=== PATIENT | male | born 1955 | race Caucasian/White ===

== ENCOUNTER 2017-06-12 16:48 | Inpatient (IN) | payer OTHER, MEDICARE ==
[~2017-06-12] VITALS: Ht 175.3 cm; Wt 100.2 kg
[~2017-06-12 16:48] MED LIST: ACETAMINOPHEN500 M4 PO; ANIMAL CHEWS1 EACH PO; AUGMENTIN 875-1 EACH PO; IBUPROFEN IB200 M1; KEFLEX500 M1 PO; KEFLEX500 MG PO; MYCOSTATIN SUS.60 ML PO; NYSTATIN100000 UNI PO; PROSTATE HEALT1 EACH PO; SENNA S TABLET1 EACH PO
[2017-06-12 17:42] LABS: ABSOLUTE BASOPHIL COUNT 0 /CUMM (0.0-0.2); ABSOLUTE EOSINOPHIL COUNT 0 /CUMM (0.0-0.7); ABSOLUTE GRANULOCYTE CT 21.6 /CUMM (1.4-6.5); ABSOLUTE LYMPH COUNT 0.4 /CUMM (1.2-3.4); ABSOLUTE MONOCYTE COUNT 1.3 /CUMM (0.10-0.60); BASOPHIL % 0.1 % (0.0-2.0); EOSINOPHIL % 0.1 % (0-5); GRANULOCYTE % 92.4 % (42.2-75.2); HEMATOCRIT 43.5 % (42-52); MEAN CORPUSCULAR HGB 31.7 PG (27.0-31.0); MEAN CORPUSCULAR HGB CONC 34.6 G/DL (33.0-37.0); MEAN CORPUSCULAR VOLUME 91.8 FL (80.0-94.0); MEAN PLATELET VOLUME 7.9 FL (7.4-10.4); PLATELET COUNT 294 /CUMM (130-400); RBC DISTRIBUTION WIDTH 13.8 % (11.5-14.5); RED BLOOD CELL CT 4.74 /CUMM (4.70-6.10)
[2017-06-12 17:53] LABS: WHITE BLOOD CELL COUNT 23.4 /CUMM (4.8-10.8)
--- NOTE | 2017-06-12 18:52 | ED UPPER/LOWER EXTREMITY COMPL ---
History of Present Illness General Chief Complaint: Lower Extremity Problems Stated Complaint: "I HAVE CELLULITIS IN MY RIGHT LEG" Source: patient, family Exam Limitations: no limitations Allergies Coded Allergies: NSAIDS (Non-Steroidal Anti-Inflamma (Mild, "GI UPSET" 09/10/15) aspirin (Mild, "GI UPSET" 09/10/15) codeine (Mild, "GI UPSET" 09/10/15) morphine (Mild, "CRYING FIT FOR 24 HOURS" 09/10/15) Reconcile Medications Acetaminophen 500 MG TABLET 1 TAB PO PRN ARTHRITIS (Reported) Cephalexin (Keflex) 500 MG CAPSULE 1 TAB PO Q6 cellulitis Multivitamin (Animal Chews) 1 EACH TAB.CHEW 2 TAB PO DAILY HEART HEALTH ( Reported) Nystatin 100,000 UNIT/1 ML ORAL.SUSP 5 ML PO 4 TIMES/DAY oral thrush Saw/Vit E/Sod Anayeli/Lyc/Beta/Pyg (Prostate Health Caplet) 1 EACH TABLET 1 TAB PO DAILY PROSTATE (Reported) Sennosides/Docusate Sodium (Senna S Tablet) 1 EACH TABLET 2 TAB PO DAILY constipation Triage Note: PT STATES HE HAS CHRONIC CELLULITIS IN HIS RIGHT LOWER EXT. PT HAS FEVER IN TRIAGE STATES IT CAME ON ABOUT 10:30 THIS AM. Triage Nurses Notes Reviewed? yes Onset: Gradual Duration: day(s): Timing: recent history Severity: moderate Pain/Injury Location: Right: Leg, Foot. HPI: 62YO Male with hx of multiple episodes of cellulitis requiring hospital admission, cerebral palsy presents emergency department complaining of cellulitis to right lower extremity beginning today. Patient states that yesterday he was in his usual state of health. Today while at work experiencing chills and nausea with pain in her right lower leg. Patient detected redness right lower legs, his circled area with pen marker. Red area has been increasing up leg for the past several hours. Patient reports injury to second toenail of right foot earlier this week. Patient reports his nausea has resolved. He denies abdominal pain, diarrhea, chest pain, cough. (Savita BUSBY,Kristy Velázquez) Vital Signs & Intake/Output Vital Signs & Intake/Output Vital Signs Date Time Temp Pulse Resp B/P B/P Pulse O2 O2 Flow FiO2 Mean Ox Delivery Rate 06/13 0057 99.1 107 16 161/71 97 Room Air 06/12 2021 99.3 104 20 119/69 98 Room Air 06/12 1728 100.9 06/12 1715 100.9 132 20 139/84 95 Room Air ED Intake and Output 06/13 0000 06/12 1200 Intake Total 3000 Output Total Balance 3000 Intake, IV 3000 Intake, Oral 0 Patient 222 lb Weight Weight Reported by Patient Measurement Method (Palma MONTE,Baljinder Melo) ED Sepsis Exam Date of Focused Sepsis Exam: 06/12/17 Time of Focused Sepsis Exam: 1830 Sepsis Cardiac Exam: Tachycardia Sepsis Resp Exam: CTA Sepsis Cap Refill Exam: <2 Sec Sepsis Peripheral Pulse Exam: Normal Sepsis Peripheral Pulse Location: Radial Sepsis Skin Color Exam: Normal for Ethnicity, erythema to RLE Skin Temp/Moisture Exam: Warm/Dry (Kristy Medrano) Past History Travel History Traveled to [place] past 21 day No Medical History Any Pertinent Medical History? 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 No (Kristy Medrano) Review of Systems Review of Systems Constitutional: Reports: see HPI. EENTM: Reports: no symptoms. Respiratory: Reports: no symptoms. Cardiovascular: Reports: no symptoms. Gastrointestinal/Abdominal: Reports: see HPI. Genitourinary: Reports: no symptoms. Musculoskeletal: Reports: no symptoms. Skin: Reports: see HPI. Neurological/Psychological: Reports: no symptoms. Hematologic/Endocrine: Reports: no symptoms. Immunological: Reports: no symptoms. All Other Systems: Reviewed and Negative (Kristy Medrano) Physical Exam Physical Exam General Appearance: well developed/nourished, no apparent distress, alert, awake Head: atraumatic, normal appearance Eyes: Bilateral: normal appearance. Ears, Nose, Throat: hearing grossly normal Neck: normal inspection, supple, full range of motion Cardiovascular/Respiratory: normal breath sounds, normal peripheral pulses, tachycardia Peripheral Pulses: 2+ radial (R), 2+ radial (L) Gastrointestinal: nontender, bowel sounds present Back: normal inspection, normal range of motion Leg Left: normal range of motion, normal inspection Leg Right: swelling, erythema, warmth, tenderness to anterior lower leg Hip Left: normal range of motion, normal inspection Hip Right: normal range of motion, normal inspection Knee Left: normal range of motion, normal inspection Knee Right: normal range of motion, normal inspection Foot Left: normal inspection, normal range of motion Foot Right: nail avulsion to 2nd digit Neurologic/Tendon: normal sensation, normal motor functions, normal tendon functions Skin: see erythema as described above (Savita BUSBY,Kristy Velázquez) Progress Differential Diagnosis: cellulitis, contusion, DVT, septic arthritis (Kristy Medrano) Plan of Care: Orders Procedure Date/time Status Regular Diet 06/13 B Active Misc Message 06/12 2148 Active ED Holding Orders 06/12 2148 Active Admit to inpatient 06/12 2148 Active Vital Signs 06/12 2148 Active Code Status 06/12 2148 Active Patient Data 06/12 2120 Active Intake & Output 06/12 2022 Active LACTIC ACID 06/12 2020 Complete RAPID VIRAL INFLUENZA A 06/12 1901 Complete BLOOD CULTURE 06/12 1720 Active LACTIC ACID 06/12 1720 Complete COMPREHENSIVE METABOLIC PANEL 06/12 172 Complete CBC WITHOUT DIFFERENTIAL 06/12 172 Complete Laboratory Tests 06/12/17 2100: Lactic Acid 3.5 H 06/12/17 1725: Anion Gap 13, Estimated GFR > 60, BUN/Creatinine Ratio 25.0, Glucose 112 H, Lactic Acid 2.7 H, Calcium 9.7, Total Bilirubin 0.7, AST 53, ALT 72, Alkaline Phosphatase 77, Total Protein 7.5, Albumin 4.5, Globulin 3.0, Albumin/Globulin Ratio 1.5, CBC w Diff MAN DIFF ORDERED, RBC 4.74, MCV 91.8, MCH 31.7 H, MCHC 34.6, RDW 13.8, MPV 7.9, Gran % 92.4 H, Lymphocytes % 1.8 L, Monocytes % 5.6, Eosinophils % 0.1, Basophils % 0.1, Absolute Granulocytes 21.6 H, Absolute Lymphocytes 0.4 L, Absolute Monocytes 1.3 H, Absolute Eosinophils 0, Absolute Basophils 0, Platelet Estimate ADEQUATE, Anisocytosis 1+ Microbiology 06/12 1954 NASOPHARYN: Influenza Virus A & B Rapid Smear - COMP 06/12 1954 BLOOD: Blood Culture - RECD 06/12 1724 BLOOD: Blood Culture - RECD Patient has a rapidly spreading cellulitis with onset today. Patient's history is significant for several previous episodes of cellulitis. With patient's current infection, tachycardia, leukocytosis, patient's condition meets SIRS criteria. Patient's lactic acid is elevated. Patient was medicated with IV fluids and IV Unasyn per sepsis protocol. The patient was seen and evaluated by Dr. Waldrop. The patient was discussed with hospitalist Dr. Becker regarding general medicine admission for cellulitis. This patient requires IV antibiotics , IV fluids, repeat labs, follow up with blood cultures, premature discharge be medically unsafe. Discussed this patient with case management who agree. (Kristy Medrano) (Palma MONTE,Baljinder Melo) Departure Departure Disposition: STILL A PATIENT Condition: Stable Clinical Impression Primary Impression: Cellulitis Qualifiers: Site of cellulitis: extremity Site of cellulitis of extremity: lower extremity Laterality: right Qualified Code: L03.115 - Cellulitis of right lower limb Secondary Impressions: Sepsis Referrals: Caitlin MONTE,Jerry Martinez (PCP/Family) Departure Forms: Customer Survey General Discharge Information Admission Note Spoke With: Joe Becker MD Documentation of Exam: Documentation of any treatments & extenuating circumstances including Concerns Regarding Discharge (functional status, medication knowledge or non-compliance, living conditions, etc.) that warrant an admission rather than observation: [ Cellulitis meeting SIRS criteria with leukocytosis and tachycardia, elevated lactic acid, requiring IV antibiotics, IV fluids, repeat labs come follow-up with blood cultures, premature discharge would be medically unsafe.] (Kristy Medrano) Critical Care Note Critical Care Note Critical Care Time: 30-74 min (Kristy Medrano)
--- NOTE | 2017-06-12 22:31 | History & Physical ---
Candi MONTE,Yaneth 06/12/17 5160: General Information and HPI MD Statement: I have seen and personally examined NAN LÓPEZ and documented this H&P. The patient is a 62 year old M who presented with a patient stated chief complaint of [right lower extremity cellulitis]. Source of Information: patient, old records History of Present Illness: 62 years old male with a past medical history of cerebral palsy, left hip reconstruction and multiple hip surgeries. Complains of shaking chills which started around 11 AM which was followed within a few hours by development of localized erythema and swelling of his right lower extremity. It was associated with nausea. Of note the patient injured his right second toe (he has spastic gait due to cerebral palsy which leads his second toe to frequently bend under that foot, he had to remove his toe nail and he was alcohol and hydrogen peroxide to clean the wound. He denies any discharge or pain in that toe. Patient denies any recent trauma to his leg or recent travel. He was awoken to ambulate at baseline. Ex-smoker and occasional alcohol use Allergies/Medications Allergies: Coded Allergies: NSAIDS (Non-Steroidal Anti-Inflamma (Mild, "GI UPSET" 09/10/15) aspirin (Mild, "GI UPSET" 09/10/15) codeine (Mild, "GI UPSET" 09/10/15) morphine (Mild, "CRYING FIT FOR 24 HOURS" 09/10/15) Home Med list Acetaminophen 500 MG TABLET 1 TAB PO PRN ARTHRITIS (Reported) Past History Travel History Traveled to [place] past 21 day No Medical History Neurological: CEREBRAL PALSY EENT: NONE Cardiovascular: NONE Respiratory: NONE Gastrointestinal: NONE Hepatic: NONE Renal: NONE Musculoskeletal: L HIP RECONSTRUCTION SEVERAL LEG SURGERYS Psychiatric: NONE Endocrine: NONE Blood Disorders: NONE Cancer(s): NONE 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 spouse Services at Home: None Primary Language: Lithuanian ETOH Use: occasional use Illicit Drug Use: marijuana Functional Ability ADLs Independent: dressing, eating, toileting, bathing. Ambulation: cane, walker Review of Systems Review of Systems Constitutional: Reports: chills, diaphoresis, fever. Cardiovascular: Denies: no symptoms. Respiratory: Denies: no symptoms. GI: Reports: nausea. Genitourinary: Denies: no symptoms. Musculoskeletal: Reports: see HPI. Skin: Reports: see HPI, lesions. Exam & Diagnostic Data Last 24 Hrs of Vital Signs/I&O Vital Signs Date Time Temp Pulse Resp B/P B/P Pulse O2 O2 Flow FiO2 Mean Ox Delivery Rate 06/13 0057 99.1 107 16 161/71 97 Room Air 06/12 2021 99.3 104 20 119/69 98 Room Air 06/12 1728 100.9 06/12 1715 100.9 132 20 139/84 95 Room Air Intake & Output 06/13 0800 06/13 0000 06/12 1600 Intake Total 3000 Output Total Balance 3000 Intake, IV 3000 Intake, Oral 0 Patient 222 lb Weight Weight Reported by Patient Measurement Method Physical Exam General Appearance Alert, Oriented X3, Cooperative, No Acute Distress Skin No Breakdown HEENT Atraumatic, PERRLA, EOMI, Mucous Membr. moist/pink Neck Supple, No JVD Cardiovascular Normal S1, Normal S2, No Murmurs Lungs Clear to Auscultation Abdomen Normal Bowel Sounds, Soft, No Tenderness Extremities right LE eryhtema ans 2 + pitting edema, right 2 nd toe has a small non infected wound 0.5X0.5 cm at the nail bed Vascular Normal Pulses Assessment/Plan Assessment: 62 years old male with a past medical history of cerebral palsy, left hip reconstruction and multiple hip surgeries. Complains of shaking chills which started around 11 AM which was followed within a few hours by development of localized erythema and swelling of his right lower extremity. It was associated with nausea. Of note the patient injured his right second toe (he has spastic gait due to cerebral palsy which leads his second toe to frequently bend under that foot, most likely the source of his cellulitis is due to that toenail injury and the use of hydrogen peroxide. Patient has history of recurrent cellulitis, his chest admission was on August 2015 with sepsis secondary to right lower extremity cellulitis Vital signs on admission: Febrile with temperature 100.9, blood pressure 139/84, pulse 132, respiratory rate 20, pulse ox 95 on room air admission: wbc 23.4 with left shift, hemoglobin 15, benefit to 94, sodium 136, potassium 3.9, lactic acid 3.5, glucose 112, BUN 20, creatinine 0.8 #Sepsis secondary to Right lower extremity cellulitis: pt met 3 cr with fever and leucocytosis and tachycardia Admit to the general medicine floor Cefazolin 1 g IV every 8 Tylenol 650 mg every 6 when necessary for fever Follow-up on blood culture Doppler ultrasound to rule out DVT Leg elevation #Lactic acidosis: Most likely due to dehydration and infection Trended lactic acid IV normal saline at rate of 200 mL/h DVT prophylaxis with Lovenox Full code Regular diet # As Ranked By This Provider Problem List: 1. Cellulitis Qualifiers Site of cellulitis: extremity Site of cellulitis of extremity: lower extremity Laterality: right Qualified Code: L03.115 - Cellulitis of right lower limb Core Measures/Misc (01/14) Acute Coronary Syndrome ACS Diagnosis: No Congestive Heart Failure Congestive Heart Failure Diagnosis No Cerebrovascular Accident CVA/TIA Diagnosis: No VTE (View Protocol) VTE Risk Factors Age>40 No Mechanical VTE Prophylaxis d/t N/A MechProphylax Ordered No VTE Pharm Prophylaxis d/t NA PharmProphylax ordered Sepsis (View protocol) Sepsis Present: Yes Joe Becker 06/13/17 0133: Attending MD Review Statement Attending Statement Attending MD Statement: examined this patient, discuss w/resident/PA/OBIEE CONSULTANT, agreed w/resident/PA/OBIEE CONSULTANT, discussed with family, reviewed EMR data (avail), reviewed images, amended to note Attending Assessment/Plan: CC: Right leg redness PMH: Mild Cerebral palsy, multiple surgeries Patient is a very good historian, he was working from home at around 11 AM, he noticed chills and shaking and feverish it was associated with nausea but no vomiting. Patient has recurrent cellulitis of right lower extremity, so he was worried about that and kept a close eye on that leg and around afternoon he noticed redness, swelling, pain is right lower extremity so he came to ER. Because of his gait secondary to cerebral palsy, he had trauma to his second right toe, broken nail which he had to remove, followed by shallow ulcer which happened few days back with no signs of infection. Otherwise complete ROS unremarkable Vitals: Tmax 100.9, HR 132, RR 20, blood pressure 139/84, saturating 98% on room air On exam: A O 3, cooperative, no acute distress, neck supple, JVD normal, no lymphadenopathy, mucosa moist, no focal neurological deficit, no dependent edema , CVS: S1-S2, RRR. RS: Clear to auscultate bilaterally. Abdomen: Soft, NT, ND, bowel sounds present. Right lower extremity warm, tried, tender to touch, significantly swollen as compared to left, peripheral pulses intact, knee joint movement and ankle joint movement of her right leg intact. Assessment and plan 62-year-old male with past medical history significant for mild cerebral palsy with gait abnormality presented in ER for right lower extremity pain, swelling, redness appears to have cellulitis. Patient has marked the area of redness at home this afternoon, in ER it appears to be beyond the marking. No crepitus, joint movements intact, pulses normal. He spiked fever of 100.9 with tachycardia and has significant leukocytosis 23.4 with left shift. He has lactic acidosis as well. Given no purulence, fluctuation staph or MRSA less likely, we will cover her with cefazolin + Sepsis secondary to cellulitis + Right lower extremity cellulitis + History of mild cerebral palsy - Admit to general medicine - Continue gentle hydration - Trend lactate - Follow-up cultures - Continue IV cefazolin - Leg elevation - DVT Doppler - Adequate pain control - DVT prophylaxis Caryl MONTE,[facility] 06/13/17 0446: Resident Review Statement Resident Statement: examined this patient, discussed with security intern, agreed with security intern Other Findings: Mr López is 62-year-old male with past medical history significant for cerebral palsy status post multiple foot and knee surgeries, osteoarthritis, left hip reconstruction after trauma 1992, multiple bilateral lower extremity cellulitis who presented to ED with chief complain of right foot erythema and swelling. Patient was admitted in August 2015 for right foot cellulitis and treated with IV Cefazolin, negative blood culture. Patient was in his regular state of health until 11:30 this morning when he started to have chills and stomach upset, nausea, denied vomiting. Patient reported having similar symptoms every time when he gets cellulitis. Around 2:30 PM noticed redness on the anterior surface of right leg associated with swelling. Patient denied any trauma, scratch, animal bites however reported wound in the 2nd toe becuase of nail/toe deformaty couple of days ago. Patient denied fever, headaches, blurry vision, chest pain, palpitation, shortness of breath, abdominal pain, vomiting, dysuria or change in color of urine. On admission Vital significant to temperature 100.9, pulse 132, respiratory rate 20 saturating 95% room air, blood pressure 159/84 white blood cells 23.4 with left shift no bandemia, H&H 15.6/43.5, platelet 294, lactic acid 2.7, sodium 136, potassium 3.9, BUN/creatinine 20/0.8 Problem list Sepsis Right leg cellulitis mostly Streptococcus Toe deformity Plan Admit to general medical floor Vitals every shift Blood culture IV cefazolin IV fluid Trend lactic acid Repeat CBC and BMP in a.m. Wound care of right second toe, currently no signs of infection Outpatient referral to podiatry for evaluation Leg elevation Acetaminophen for pain and fever Doppler ultrasound to rule out DVT DVT prophylaxis Lovenox Diet regular Code full
--- NOTE | 2017-06-13 01:35 | Admission Certification ---
Admission Certification Certification Statement - As attending physician, I certify that at the time of - admission, based on clinical presentation, severity of - symptoms, need for further diagnostic testing and - therapeutic interventions, and risk of adverse outcomes - without in-hospital treatment, in my clinical assessment, - this patient requires an acute hospital stay for a minimum - of two nights or longer. I have also considered psychsocial - factors such as support system, advanced age, financial - issues, cognitive issues, and failed out-patient treatments, - past re-admission history, safety of patient, and lack of - compliance as applicable. Specific rationale supporting this admission is: Right leg cellulitis
[2017-06-13 06:12] LABS: ABSOLUTE BASOPHIL COUNT 0 /CUMM (0.0-0.2); ABSOLUTE EOSINOPHIL COUNT 0 /CUMM (0.0-0.7); ABSOLUTE GRANULOCYTE CT 19.3 /CUMM (1.4-6.5); ABSOLUTE MONOCYTE COUNT 0.6 /CUMM (0.10-0.60); BASOPHIL % 0 % (0.0-2.0); EOSINOPHIL % 0 % (0-5); RBC DISTRIBUTION WIDTH 13.9 % (11.5-14.5)
[2017-06-13 06:32] LABS: ABSOLUTE LYMPH COUNT 0.8 /CUMM (1.2-3.4); MEAN CORPUSCULAR HGB 31.5 PG (27.0-31.0); MEAN CORPUSCULAR HGB CONC 34.9 G/DL (33.0-37.0); MEAN CORPUSCULAR VOLUME 90.3 FL (80.0-94.0); PLATELET COUNT 252 /CUMM (130-400); RED BLOOD CELL CT 4.02 /CUMM (4.70-6.10); WHITE BLOOD CELL COUNT 20.7 /CUMM (4.8-10.8)
[2017-06-13 06:39] LABS: GRANULOCYTE % 93.3 % (42.2-75.2); HEMATOCRIT 36.3 % (42-52)
--- NOTE | 2017-06-13 08:01 | PN- Housestaff ---
Subjective Follow-up For: RLE cellulitis Sepsis Subjective: Patient seen and examined. He is seen lying flat in bed resting comfortably. He appears to be in no acute distress. He feels his leg appears more or less the same as it did yesterday and does not have any associated pain. He denies any further fever or chills and otherwise feels well. Review of Systems Constitutional: Reports: see HPI. Objective Last 24 Hrs of Vital Signs/I&O Vital Signs Date Time Temp Pulse Resp B/P B/P Pulse O2 O2 Flow FiO2 Mean Ox Delivery Rate 06/13 1411 99.2 95 20 124/72 94 Room Air 06/13 1208 102.0 06/13 1154 102.0 89 112/73 06/13 1000 99.7 96 20 145/86 98 Room Air 06/13 0730 99.6 100 20 129/67 96 Room Air 06/13 0057 99.1 107 16 161/71 97 Room Air 06/12 2022 99.3 104 20 119/69 98 Room Air 06/12 1728 100.9 06/12 1715 100.9 132 20 139/84 95 Room Air Intake & Output 06/13 1600 06/13 0800 06/13 0000 Intake Total 320 3000 Output Total Balance 320 3000 Intake, IV 3000 Intake, Oral 320 0 Patient 100.244 kg 100.698 kg Weight Weight Reported by Patient Measurement Method Physical Exam General Appearance: Alert, Oriented X3, Cooperative, No Acute Distress Other Physical Findings: GEN- well developed, obese middle aged man in no acute distress HEENT: NCAT, PERRL, EOMI, anicteric sclera CARD: normal s1/s2 w/o m/g/r; RRR PULM: CTA bilaterally ABD: Soft, NT, ND, BS + NEURO: Awake and alert, CN II-XII grossly intact EXT: mild erythema to RLE with moderate induration, no skin breakdown weeping or drainage, right second toenail is partially removed without evidence of infection Current Medications: Current Medications Sig/William Start time Last Medication Dose Route Stop Time Status Admin Acetaminophen 0 .STK-MED ONE 06/13 1211 DC PO Acetaminophen 650 MG Q6P PRN 06/13 0215 AC 06/13 PO 1208 Acetaminophen 650 MG ONCE ONE 06/12 1730 DC 06/12 PO 06/12 173 1728 Ampicillin Sodium/ 0 .STK-MED ONE 06/12 2009 DC Sulbactam Sodium .ROUTE Ampicillin Sodium/ 3,000 MG ONCE ONE 06/12 1915 DC 06/12 Sulbactam Sodium IV 06/12 194 2017 Sodium Chloride 100 ML Cefazolin Sodium 1,000 MG IQ8 06/13 0800 AC 06/13 IV 0745 Cefazolin Sodium 0 .STK-MED ONE 06/13 0743 DC .ROUTE Enoxaparin Sodium 0 .STK-MED ONE 06/13 1006 DC SC Enoxaparin Sodium 40 MG DAILY 06/13 1000 AC 06/13 SC 1005 Sodium Chloride 1,000 ML .Q5H 06/13 0215 DC 06/13 IV 0745 Sodium Chloride 1,000 ML BOLUS ONE 06/12 2200 DC 06/12 IV 06/12 225 2308 Sodium Chloride 1,000 ML BOLUS ONE 06/12 2030 DC 06/12 IV 06/12 212 2148 Sodium Chloride 1,000 ML BOLUS ONE 06/12 1900 DC 06/12 IV 06/12 Last 24 Hrs of Lab/Tex Results Last 24 Hrs of Labs/Mics: Laboratory Tests 06/13/17 0606: Anion Gap 8, Estimated GFR > 60, BUN/Creatinine Ratio 20.0, CBC w Diff NO MAN DIFF REQ, RBC 4.02 L, MCV 90.3, MCH 31.5 H, MCHC 34.9, RDW 13.9, MPV 8.0, Gran % 93.3 H, Lymphocytes % 3.6 L, Monocytes % 3.1, Eosinophils % 0, Basophils % 0 , Absolute Granulocytes 19.3 H, Absolute Lymphocytes 0.8 L, Absolute Monocytes 0.6, Absolute Eosinophils 0, Absolute Basophils 0 06/13/17 0240: Lactic Acid 1.1 06/13/17 0207: Lactic Acid Cancelled 06/12/17 2100: Lactic Acid 3.5 H 06/12/17 1725: Anion Gap 13, Estimated GFR > 60, BUN/Creatinine Ratio 25.0, Glucose 112 H, Lactic Acid 2.7 H, Calcium 9.7, Total Bilirubin 0.7, AST 53, ALT 72, Alkaline Phosphatase 77, Total Protein 7.5, Albumin 4.5, Globulin 3.0, Albumin/Globulin Ratio 1.5, CBC w Diff MAN DIFF ORDERED, RBC 4.74, MCV 91.8, MCH 31.7 H, MCHC 34.6, RDW 13.8, MPV 7.9, Gran % 92.4 H, Lymphocytes % 1.8 L, Monocytes % 5.6, Eosinophils % 0.1, Basophils % 0.1, Absolute Granulocytes 21.6 H, Absolute Lymphocytes 0.4 L, Absolute Monocytes 1.3 H, Absolute Eosinophils 0, Absolute Basophils 0, Platelet Estimate ADEQUATE, Anisocytosis 1+ Microbiology 06/12 1954 NASOPHARYN: Influenza Virus A & B Rapid Smear - COMP 06/12 1954 BLOOD: Blood Culture - RES 06/12 1724 BLOOD: Blood Culture - RES Assessment/Plan Assessment: 62 year old man with multiple medical problems significant for cerebral palsy s/ p multiple surgical revisions of his lower extremity contractures and recurrent cellulitis seen for evaluation of acute onset chills with right lower extremity erythema concerning for cellulitis. Patient defervesed after receiving unasyn and several doses of cefazolin, however became febrile to 102 this afternoon which responded to IV acetaminophen. He has persistent leukocytosis with an improved lactic acid. He remains hemodynamically stable with blood cultures so far being no growth to date. Problem List -Right lower extremity cellulitis -Sepsis, resolved -Lactic Acidois, resolved -History of Cerebral Palsy s/p multiple lower extremity surgeries -History of left hip injury s/p surgical repair 1992 -Osteoarthritis Plan -General Medicine -Elevated RLE -Cefazolin 1 g IV Q8H -Follow up cultures & sensitivies -Recheck rapid flu -Pain control with acetaminophen -Regular Diet -DVT PPx with lovenox Problem List: 1. Cellulitis 2. Sepsis Pain Ratin Pain Location: None Pain Goal: Pain 4 or less Pain Plan: See assessment Tomorrow's Labs & Rationales: CBC
--- NOTE | 2017-06-13 08:59 | ULTRASOUND REPORT ---
EXAMINATION: US TRIPLEX LOWER EXTREMITY, RIGHT CLINICAL INFORMATION: Right leg swelling. Assess for DVT. COMPARISON: Venous Doppler study 09/28/2015. TECHNIQUE: Color-flow triplex imaging with spectral analysis and compression Doppler were performed on the right lower extremity. FINDINGS: Respiratory variation, normal compression and augmented flow are noted throughout the lower extremity. The visualized common femoral vein, superficial femoral vein, profunda femoral vein, popliteal vein and midcalf peroneal and posterior tibial venous segments show no evidence of deep venous thrombosis. There are no focal fluid collections. IMPRESSION: 1. Normal triplex scan without evidence of deep venous thrombosis involving the right lower extremity. 2. There are no focal fluid collections.
--- NOTE | 2017-06-13 11:20 | PN- Att Addend ---
Attending Addendum Attending Brief Note Patient seen and examined, feels okay. Right lower extremity erythema is improving. Patient has a low-grade temp of 99. Vital Signs Date Time Temp Pulse Resp B/P B/P Pulse O2 O2 Flow FiO2 Mean Ox Delivery Rate 06/13 1000 99.7 96 20 145/86 98 Room Air 06/13 0730 99.6 100 20 129/67 96 Room Air 06/13 0057 99.1 107 16 161/71 97 Room Air 06/12 2021 99.3 104 20 119/69 98 Room Air 06/12 1728 100.9 06/12 1715 100.9 132 20 139/84 95 Room Air on exam; aox3, nad. cv; s1,s2, rrr resp; clear abd; soft, nt, bs+ ext; + erythema rle, + swelling. Laboratory Tests 06/13 06/13 06/13 0606 0240 0207 Chemistry Sodium (137 - 145 mmol/L) 137 Potassium (3.5 - 5.1 mmol/L) 3.7 Chloride (98 - 107 mmol/L) 107 Carbon Dioxide (22 - 30 mmol/L) 22 Anion Gap (5 - 16) 8 BUN (9 - 20 mg/dL) 14 Creatinine (0.7 - 1.2 mg/dL) 0.7 Estimated GFR (>60 ml/min) > 60 BUN/Creatinine Ratio (7 - 25 %) 20.0 Lactic Acid (0.7 - 2.1 mmol/L) 1.1 Cancelled Hematology CBC w Diff NO MAN DIFF REQ WBC (4.8 - 10.8 /CUMM) 20.7 H RBC (4.70 - 6.10 /CUMM) 4.02 L Hgb (14.0 - 18.0 G/DL) 12.7 L Hct (42 - 52 %) 36.3 L MCV (80.0 - 94.0 FL) 90.3 MCH (27.0 - 31.0 PG) 31.5 H MCHC (33.0 - 37.0 G/DL) 34.9 RDW (11.5 - 14.5 %) 13.9 Plt Count (130 - 400 /CUMM) 252 MPV (7.4 - 10.4 FL) 8.0 Gran % (42.2 - 75.2 %) 93.3 H Lymphocytes % (20.5 - 51.1 %) 3.6 L Monocytes % (1.7 - 9.3 %) 3.1 Eosinophils % (0 - 5 %) 0 Basophils % (0.0 - 2.0 %) 0 Absolute Granulocytes (1.4 - 6.5 /CUMM) 19.3 H Absolute Lymphocytes (1.2 - 3.4 /CUMM) 0.8 L Absolute Monocytes (0.10 - 0.60 /CUMM) 0.6 Absolute Eosinophils (0.0 - 0.7 /CUMM) 0 Absolute Basophils (0.0 - 0.2 /CUMM) 0 06/12 06/12 2100 1725 Chemistry Sodium (137 - 145 mmol/L) 136 L Potassium (3.5 - 5.1 mmol/L) 3.9 Chloride (98 - 107 mmol/L) 104 Carbon Dioxide (22 - 30 mmol/L) 19 L Anion Gap (5 - 16) 13 BUN (9 - 20 mg/dL) 20 Creatinine (0.7 - 1.2 mg/dL) 0.8 Estimated GFR (>60 ml/min) > 60 BUN/Creatinine Ratio (7 - 25 %) 25.0 Glucose (65 - 99 mg/dL) 112 H Lactic Acid (0.7 - 2.1 mmol/L) 3.5 H 2.7 H Calcium (8.4 - 10.2 mg/dL) 9.7 Total Bilirubin (0.2 - 1.3 mg/dL) 0.7 AST (17 - 59 U/L) 53 ALT (21 - 72 U/L) 72 Alkaline Phosphatase (< 127 U/L) 77 Total Protein (6.3 - 8.2 g/dL) 7.5 Albumin (3.5 - 5.0 g/dL) 4.5 Globulin (1.9 - 4.2 gm/dL) 3.0 Albumin/Globulin Ratio (1.1 - 2.2 %) 1.5 Hematology CBC w Diff MAN DIFF ORDERED WBC (4.8 - 10.8 /CUMM) 23.4 H RBC (4.70 - 6.10 /CUMM) 4.74 Hgb (14.0 - 18.0 G/DL) 15.0 Hct (42 - 52 %) 43.5 MCV (80.0 - 94.0 FL) 91.8 MCH (27.0 - 31.0 PG) 31.7 H MCHC (33.0 - 37.0 G/DL) 34.6 RDW (11.5 - 14.5 %) 13.8 Plt Count (130 - 400 /CUMM) 294 MPV (7.4 - 10.4 FL) 7.9 Gran % (42.2 - 75.2 %) 92.4 H Lymphocytes % (20.5 - 51.1 %) 1.8 L Monocytes % (1.7 - 9.3 %) 5.6 Eosinophils % (0 - 5 %) 0.1 Basophils % (0.0 - 2.0 %) 0.1 Absolute Granulocytes (1.4 - 6.5 /CUMM) 21.6 H Absolute Lymphocytes (1.2 - 3.4 /CUMM) 0.4 L Absolute Monocytes (0.10 - 0.60 /CUMM) 1.3 H Absolute Eosinophils (0.0 - 0.7 /CUMM) 0 Absolute Basophils (0.0 - 0.2 /CUMM) 0 Platelet Estimate (ADEQUATE) ADEQUATE Anisocytosis 1+ A/P; 62 y/o M with pmh sig for cerebral palsy, left hip reconstruction and multiple hip surgeries, admitted with sepsis (fever, leukocytosis, tachycardia) secondary to right lower extremity cellulitis. Patient currently treated with cefazolin. Leukocytosis slightly better today. We'll continue the cefazolin and follow-up on the blood cultures. Blood pressure improved. Clinically patient does not look dehydrated therefore we can stop the IV fluids. Follow-up lactate has improved. Lower extremity Doppler negative for DVT. DVT prophylaxis: Lovenox.
[2017-06-13 14:11] VITALS: BP 124/72
[2017-06-13 22:13] VITALS: BP 128/70
[2017-06-14 06:40] VITALS: BP 150/80
--- NOTE | 2017-06-14 07:16 | PN- Housestaff ---
Bryan Hilario MD 06/14/17 0716: Subjective Follow-up For: RLE cellulitis Sepsis Subjective: Patient seen and examined. He is seen lying flat resting comfortably watching television. He appears to be in no acute distress. Yesterday afternoon patient was found to be febrile to 102 for which he was given intravenous tylenol and subsequently defervesced. He remains asymptomatic during this period without complaints. He did not a new area of redness tracking up his leg to his groin yesterday and denies any other rashes anywhere else on his body. He does now admit mild pain to the extremity that wasn't present yesterday that feels like a "sunburn". He denies any fever, chlls, itching, or shortness of breath. Review of Systems Constitutional: Reports: see HPI. Objective Last 24 Hrs of Vital Signs/I&O Vital Signs Date Time Temp Pulse Resp B/P B/P Pulse O2 O2 Flow FiO2 Mean Ox Delivery Rate 06/14 0640 98.9 94 20 150/80 94 Room Air 06/13 2213 99.8 96 20 128/70 98 Room Air 06/13 1411 99.2 95 20 124/72 94 Room Air 06/13 1208 102.0 06/13 1154 102.0 89 112/73 06/13 1000 99.7 96 20 145/86 98 Room Air Intake & Output 06/14 1600 06/14 0800 06/14 0000 Intake Total 240 440 Output Total 800 600 Balance -560 -160 Intake, IV 200 Intake, Oral 240 240 Output, Urine 800 600 Physical Exam General Appearance: Alert, Oriented X3, Cooperative, No Acute Distress Other Physical Findings: GEN- well developed, obese middle aged man in no acute distress HEENT: NCAT, PERRL, EOMI, anicteric sclera CARD: normal s1/s2 w/o m/g/r; RRR PULM: CTA bilaterally ABD: Soft, NT, ND, BS + NEURO: Awake and alert, CN II-XII grossly intact EXT: mild erythema to RLE with moderate induration and a central area of deep red erythema/induration, new mild erythematous rash that is continguous with the lower extremity rash tracking up to groin, no skin breakdown weeping or drainage , right second toenail is partially removed without evidence of infection Current Medications: Current Medications Sig/William Start time Last Medication Dose Route Stop Time Status Admin Acetaminophen 0 .STK-MED ONE 06/13 1211 DC PO Acetaminophen 650 MG Q6P PRN 06/13 0215 AC 06/13 PO 1921 Cefazolin Sodium 1,000 MG IQ8 06/13 0800 AC 06/14 IV 0756 Enoxaparin Sodium 0 .STK-MED ONE 06/13 1006 DC SC Enoxaparin Sodium 40 MG DAILY 06/13 1000 AC 06/13 SC 1005 Senna/Docusate Sodium 2 TAB DAILY 06/13 1941 AC 06/13 PO 2104 Sodium Chloride 1,000 ML .Q5H 06/13 0215 DC 06/13 IV 0745 Last 24 Hrs of Lab/Tex Results Last 24 Hrs of Labs/Mics: Laboratory Tests 06/14/17 0604: CBC w Diff Pending, WBC Pending, RBC Pending, Hgb Pending, Hct Pending, MCV Pending, MCH Pending, MCHC Pending, RDW Pending, Plt Count Pending, MPV Pending, Gran % Pending, Lymphocytes % Pending, Monocytes % Pending, Eosinophils % Pending, Basophils % Pending, Absolute Granulocytes Pending, Absolute Lymphocytes Pending, Absolute Monocytes Pending, Absolute Eosinophils Pending, Absolute Basophils Pending Microbiology 06/13 1929 NASOPHARYN: Influenza Virus A & B Rapid Smear - COMP Assessment/Plan Assessment: 62 year old man with multiple medical problems significant for cerebral palsy s/ p multiple surgical revisions of his lower extremity contractures and recurrent cellulitis seen for evaluation of acute onset chills with right lower extremity erythema concerning for cellulitis. Patient remained afebrile overnight after receiving intravenous tylenol for a fever of 102 yesterday afternoon. Repeat flu swab remained negative. Blood cultures remain no growth to date. He is continued on Cefazolin with leg elevation for hhis RLE cellulitis. His leukocytosis had decreased to 15 from 20. Clinically his rash appears worse today and is tracking up his leg to his groin. ID consult placed for further evaluation. Problem List -Right lower extremity cellulitis -Sepsis, resolved -Lactic Acidois, resolved -History of Cerebral Palsy s/p multiple lower extremity surgeries -History of left hip injury s/p surgical repair 1992 -Osteoarthritis Plan -General Medicine -Elevated RLE -Cefazolin 1 g IV Q8H -Follow up cultures & sensitivies -Pain control with acetaminophen -Regular Diet -DVT PPx with lovenox -FULL CODE Problem List: 1. Cellulitis 2. Sepsis Pain Ratin Pain Location: Right leg Pain Goal: Pain 4 or less Pain Plan: See assessment Tomorrow's Labs & Rationales: CBC Clif[place] MONTE,Lotus 06/14/17 1158: Attending MD Review Statement Attending Statement Attending MD Statement: examined this patient, discuss w/resident/PA/NAIL GALVANIZER, agreed w/resident/PA/NAIL GALVANIZER, reviewed EMR data (avail), discussed with nursing, discussed with case mgmt, reviewed images, amended to note Attending Assessment/Plan: Patient seen and examined, not improving. The right lower extremity erythema has progressed. WBC count has improved. Vital Signs Date Time Temp Pulse Resp B/P B/P Pulse O2 O2 Flow FiO2 Mean Ox Delivery Rate 06/14 0640 98.9 94 20 150/80 94 Room Air 06/13 2213 99.8 96 20 128/70 98 Room Air 06/13 1411 99.2 95 20 124/72 94 Room Air 06/13 1208 102.0 on exam aox3, nad. cv; s1,s2, rrr resp; clear abd; soft, nt, bs+ ext; right lower extremity erythema is progressing and now it has gone to his upper thigh. Laboratory Tests 06/14 0604 Hematology CBC w Diff NO MAN DIFF REQ WBC (4.8 - 10.8 /CUMM) 15.2 H RBC (4.70 - 6.10 /CUMM) 4.06 L Hgb (14.0 - 18.0 G/DL) 12.8 L Hct (42 - 52 %) 37.3 L MCV (80.0 - 94.0 FL) 92.0 MCH (27.0 - 31.0 PG) 31.5 H MCHC (33.0 - 37.0 G/DL) 34.3 RDW (11.5 - 14.5 %) 14.1 Plt Count (130 - 400 /CUMM) 240 MPV (7.4 - 10.4 FL) 8.2 Gran % (42.2 - 75.2 %) 87.3 H Lymphocytes % (20.5 - 51.1 %) 5.9 L Monocytes % (1.7 - 9.3 %) 6.6 Eosinophils % (0 - 5 %) 0.1 Basophils % (0.0 - 2.0 %) 0.1 Absolute Granulocytes (1.4 - 6.5 /CUMM) 13.3 H Absolute Lymphocytes (1.2 - 3.4 /CUMM) 0.9 L Absolute Monocytes (0.10 - 0.60 /CUMM) 1.0 H Absolute Eosinophils (0.0 - 0.7 /CUMM) 0 Absolute Basophils (0.0 - 0.2 /CUMM) 0 A/P; 62 y/o M with pmh sig for cerebral palsy, left hip reconstruction and multiple hip surgeries, admitted with sepsis (fever, leukocytosis, tachycardia) secondary to right lower extremity cellulitis. Patient had been kept on cefazolin. Although he remains afebrile overnight and his abuse he count improving, his erythema has progressed up to his upper thigh. Please consult infectious disease. Blood cultures so far remain negative. Patient did spike a fever 102 yesterday therefore we repeated his flu swab which also came out negative. DVT prophylaxis: Lovenox. We'll follow-up on blood cultures and ID recommendations.
[2017-06-14 08:26] LABS: ABSOLUTE BASOPHIL COUNT 0 /CUMM (0.0-0.2); ABSOLUTE EOSINOPHIL COUNT 0 /CUMM (0.0-0.7); ABSOLUTE GRANULOCYTE CT 13.3 /CUMM (1.4-6.5); ABSOLUTE LYMPH COUNT 0.9 /CUMM (1.2-3.4); BASOPHIL % 0.1 % (0.0-2.0); EOSINOPHIL % 0.1 % (0-5); HEMATOCRIT 37.3 % (42-52); MEAN CORPUSCULAR HGB 31.5 PG (27.0-31.0); MEAN CORPUSCULAR HGB CONC 34.3 G/DL (33.0-37.0); MEAN PLATELET VOLUME 8.2 FL (7.4-10.4); PLATELET COUNT 240 /CUMM (130-400); RBC DISTRIBUTION WIDTH 14.1 % (11.5-14.5); RED BLOOD CELL CT 4.06 /CUMM (4.70-6.10); WHITE BLOOD CELL COUNT 15.2 /CUMM (4.8-10.8)
[2017-06-14 09:16] LABS: GRANULOCYTE % 87.3 % (42.2-75.2)
[2017-06-14 14:13] VITALS: BP 132/78
--- NOTE | 2017-06-14 15:40 | Cons- Infect Disease ---
General Information and HPI Consulting Request Date of Consult: 06/14/17 Requested By: Lotus Lazo MD Reason for Consult: Cellulitis of the right lower extremity Source of Information: patient, family, old records History of Present Illness: This is a 62-year-old man with cerebral palsy, with a spastic gait, recurrent cellulitis of both lower extremities, most recently 2 years prior to admission, status post an injury to his right second toenail because of a deformity of the right first and second toes, with loss of the toenail, admitted on June 12 with the acute onset of erythema of the right lower extremity, mostly over the anterior tibial aspect, with some erythema of the right thigh, associated with fevers and chills. On admission he was febrile to 100.9. Laboratory data revealed a white blood cell count of 23,000, BUN/creatinine 20 and 0.8, lactic acid 2.7, with normal liver enzymes. Doppler of the right lower extremity was negative. He was given a dose of Unasyn in the emergency room and then placed on Cefazolin. He spiked to 102 on June 13 but has been afebrile since. He feels overall improved with decreased erythema of the right thigh and with no further chills. Allergies/Medications Allergies: Coded Allergies: NSAIDS (Non-Steroidal Anti-Inflamma (Mild, "GI UPSET" 09/10/15) aspirin (Mild, "GI UPSET" 09/10/15) codeine (Mild, "GI UPSET" 09/10/15) morphine (Mild, "CRYING FIT FOR 24 HOURS" 09/10/15) Home Med List: Acetaminophen 500 MG TABLET 1 TAB PO PRN ARTHRITIS (Reported) Past History Travel History Traveled to [place] past 21 day No Medical History Neurological: CEREBRAL PALSY EENT: NONE Cardiovascular: NONE Respiratory: NONE Gastrointestinal: NONE Hepatic: NONE Renal: NONE Psychiatric: NONE Endocrine: NONE Blood Disorders: NONE Cancer(s): NONE [employer] SPECIALIST/Reproductive: NONE Other Medical Hx: Recurrent cellulitis of both lower extremities History of MRSA: No History of VRE: No History of CDIFF: No Isolation History: Standard Surgical History Surgical History: MULTIPLE LEG SURGERIES L HIP SURGERY Family History Relations & Conditions If Any: MOTHER FH: stomach cancer Psychosocial History Where Do You Live? Home Who Do You Live With? spouse Services at Home: None Primary Language: Surinamese Smoking Status: Former Smoker ETOH Use: occasional use Illicit Drug Use: marijuana Functional Ability ADLs Independent: dressing, eating, toileting, bathing. Ambulation: cane, walker Review of Systems Review of Systems Cardiovascular: Reports: peripheral edema. All Other Systems: Reviewed and Negative Exam & Diagnostic Data Last 24 Hrs of Vital Signs/I&O Vital Signs Date Time Temp Pulse Resp B/P B/P Pulse O2 O2 Flow FiO2 Mean Ox Delivery Rate 06/14 1413 98.9 20 20 132/78 93 Room Air 06/14 0640 98.9 94 20 150/80 94 Room Air 06/13 2213 99.8 96 20 128/70 98 Room Air Intake & Output 06/14 1600 06/14 0800 06/14 0000 Intake Total 750 240 440 Output Total 600 800 600 Balance 150 -560 -160 Intake, IV 30 200 Intake, Oral 720 240 240 Number 1 Bowel Movements Output, Urine 600 800 600 Physical Exam Other Physical Findings: MAXIMUM TEMPERATURE 102. He is awake and alert in no acute distress. Skin diaphoretic, with no rash. HEENT negative. Neck is supple with no adenopathy. Lungs are clear. Heart regular rhythm with no murmur. Abdomen is soft, nontender with positive bowel sounds. Back no CVA tenderness. Extremities right leg erythema over the anterior tibial aspect and, to a lesser extent, over the dorsum of the right foot and right thigh, nontender to palpation; 1+ edema both lower extremities, right greater than left; pulses 2+ and equal. Neuro is without focality. Last 24 Hours of Lab Results: Laboratory Tests 06/14 0604 Hematology CBC w Diff NO MAN DIFF REQ WBC (4.8 - 10.8 /CUMM) 15.2 H RBC (4.70 - 6.10 /CUMM) 4.06 L Hgb (14.0 - 18.0 G/DL) 12.8 L Hct (42 - 52 %) 37.3 L MCV (80.0 - 94.0 FL) 92.0 MCH (27.0 - 31.0 PG) 31.5 H MCHC (33.0 - 37.0 G/DL) 34.3 RDW (11.5 - 14.5 %) 14.1 Plt Count (130 - 400 /CUMM) 240 MPV (7.4 - 10.4 FL) 8.2 Gran % (42.2 - 75.2 %) 87.3 H Lymphocytes % (20.5 - 51.1 %) 5.9 L Monocytes % (1.7 - 9.3 %) 6.6 Eosinophils % (0 - 5 %) 0.1 Basophils % (0.0 - 2.0 %) 0.1 Absolute Granulocytes (1.4 - 6.5 /CUMM) 13.3 H Absolute Lymphocytes (1.2 - 3.4 /CUMM) 0.9 L Absolute Monocytes (0.10 - 0.60 /CUMM) 1.0 H Absolute Eosinophils (0.0 - 0.7 /CUMM) 0 Absolute Basophils (0.0 - 0.2 /CUMM) 0 Last 24 Hours of Tex Results: Blood cultures June 12 negative Rapid flu swab 2 June 12 and June 13 negative Diagnostic Data Recent Imaging Findings: Doppler of the right lower extremity negative Assessment/Plan Assessment/Plan Impression: This is a 62-year-old man with cerebral palsy, with a spastic gait, and recurrent cellulitis of both lower extremities, status post an injury to his right second toenail 2 days prior to admission admitted on June 12 with the acute onset of erythema of the right lower extremity, associated with fevers and chills, found to be febrile with a leukocytosis, treated with Cefazolin with a decrease in his temperatures and white blood cell count. His clinical picture is consistent with cellulitis of the right lower extremity. The erythema of the right thigh is suggestive of lymphangitis, which is suggestive of infection secondary to a beta-hemolytic strep. He appears to be responding to the Cefazolin, with a decrease in his temperatures and white blood cell count. The most likely source of his cellulitis is the right toenail infection. With respect to prevention of further episodes of cellulitis have discussed preventive measures with him and his , including compression stockings, consideration of a diuretic to reduce the lower extremity edema, Podiatry evaluation to address the toe deformities and continued efforts at good hygiene and avoidance of trauma. Suggestion: 1. Elevation of the right leg as much as possible 2. Continue Cefazolin Consult Acknowledgment - Thank you for your consult request.
--- NOTE | 2017-06-14 16:13 | Discharge Summary ---
Visit Information Visit Dates Admission Date: 06/12/17 Discharge Date: 06/15/17 Hospital Course Course Attending Physician: Lotus Lazo MD Primary Care Physician: Jerry Tucker MD Consulting Request: Consulting Specialty: Infectious Disease Hospital Course: 62-year-old man with past medical history of cerebral palsy status post multiple surgical revisions of his bilateral lower extremities as a child, and left hip reconstruction seen for evaluation of chills and rash of his right leg. Patient reports waking up in his normal state of health on the day of admission when around 11:30 AM he developed sudden onset chills and noticed that his right leg was red and swollen. He admits to recent injury of his second right toe causing damage to the nail which was removed and cleaned with alcohol/hydrogen peroxide. ED course -Vitals: Temp 99.1-100.9, HR 107-132, RR 16-20, BP 119-161/69-84, O2 95-97% on room air -CBC: WBC 23.4, Hgb/HCT 15.0/43.5, platelet 294 -BMP: Sodium 136, potassium 3.9, chloride 104, CO2 19, BUN 20, creatinine 0.8 -LFT: Within normal limits -Miscellaneous: Lactic acid 2.7/3.5/1.1 -Rapid flu: Negative -Right lower extremity venous Doppler: Normal triplex scan without evidence of deep venous thrombosis -Interventions: * Blood cultures 2 * Unasyn 3 g IV * Normal saline 1 L Problem List on admission -Right lower extremity cellulitis -Sepsis -Lactic Acidois -History of Cerebral Palsy s/p multiple lower extremity surgeries -History of left hip injury s/p surgical repair 1992 -Osteoarthritis Hospital course Patient was admitted to the general medicine floor. He was given aggressive intravenous fluid hydration for his sepsis and elevated lactic acid which subsequently improved. Patient received 1 dose of intravenous Unasyn in the ED but was continued on intravenous cefazolin upon admission. Patient became febrile to 102 and subsequently defervesced with intravenous acetaminophen. Patients leukocytosis reduced to 10K on the day of discharge with dramatic improvement of his cellulitis. Poditry furniture rental consultant recommened x-ray that demonstrated only soft tissue swelling. Patient was discharged to home with instruction to keep his leg elevated above the level of his heart when at rest and oral Keflex to complete a 10 day total course of antibiotics. He is to follow up with podiatry as an outpatient. Blood cultures remain no growth to date at time of discharge. Allergies: Coded Allergies: NSAIDS (Non-Steroidal Anti-Inflamma (Mild, "GI UPSET" 09/10/15) aspirin (Mild, "GI UPSET" 09/10/15) codeine (Mild, "GI UPSET" 09/10/15) morphine (Mild, "CRYING FIT FOR 24 HOURS" 09/10/15) Significant Procedures: SERVICE DATE: 06/13/17- EXAM TYPE: US - US-UNILATERAL VENOUS DOPPLER IMPRESSION: 1. Normal triplex scan without evidence of deep venous thrombosis involving the right lower extremity. 2. There are no focal fluid collections. Disposition Summary Disposition Principal Diagnosis: Right Lower Extremity Cellulitis Sepsis Additional Diagnosis: None Discharge Disposition: home or self care Discharge Instructions General Discharge Information Code Status: Full Code Patient's Diet: Regular Diet Patient's Activity: Full activity, keep leg elevated when at rest, avoid further injury Follow-Up Instructions/Appts: Take Keflex as directed. Continue all your previous medications. Follow up with your primary care provider after discharge. Schedule an appointment with a car unloader helper for further evaluation; a referral has been made. Medications at Discharge Discharge Medications: Continue taking these medications: Acetaminophen (Acetaminophen) 500 MG TABLET 1 Tablet ORAL as needed for ARTHRITIS Comments: Last Taken: 06/14/17 Time: 1030 PM Aspirin (Aspirin*) 81 MG TAB.CHEW 1 Tablet ORAL DAILY Comments: NOT GIVEN IN HOSPITAL Start taking the following new medications: Cephalexin (Keflex) 500 MG CAPSULE 1 Tablet ORAL EVERY SIX HOURS Qty = 28 No Refills Instructions: TAKE DIRECTED Comments: NOT GIVEN IN HOSPITAL, CEFAZOLIN GIVEN 400 PM Copies To: Jose Foster DPM, MD,Jerry Martinez
[2017-06-14 22:05] VITALS: BP 122/70
[2017-06-15 06:46] VITALS: BP 128/98
--- NOTE | 2017-06-15 07:14 | PN- Housestaff ---
Bryan Hilario MD 06/15/17 0714: Subjective Follow-up For: RLE cellulitis Sepsis Subjective: Patient seen and examined. He is seen lying flat in bed resting comfortably watching televison. He reports feeling "great" and feels that his rash looks somewhat improved today. He does admit to breaking out in a "cold sweat" last evening. Review of Systems Constitutional: Reports: see HPI. Objective Last 24 Hrs of Vital Signs/I&O Vital Signs Date Time Temp Pulse Resp B/P B/P Pulse O2 O2 Flow FiO2 Mean Ox Delivery Rate 06/15 0646 98.6 81 20 128/98 97 Room Air 06/14 2205 100.1 88 20 122/70 94 Room Air 06/14 1413 98.9 20 20 132/78 93 Room Air Intake & Output 06/15 1600 06/15 0800 06/15 0000 Intake Total 480 250 Output Total 550 250 Balance -70 0 Intake, IV 10 Intake, Oral 480 240 Number 0 0 Bowel Movements Output, Urine 550 250 Physical Exam General Appearance: Alert, Oriented X3, Cooperative, No Acute Distress Other Physical Findings: GEN- well developed, obese middle aged man in no acute distress HEENT: NCAT, PERRL, EOMI, anicteric sclera CARD: normal s1/s2 w/o m/g/r; RRR PULM: CTA bilaterally ABD: Soft, NT, ND, BS + NEURO: Awake and alert, CN II-XII grossly intact EXT: mild erythema to RLE with mild induration and a central area of deep red erythema/induration, no skin breakdown weeping or drainage, right second toenail is partially removed without evidence of infection Current Medications: Current Medications Sig/William Start time Last Medication Dose Route Stop Time Status Admin Acetaminophen 650 MG .STK-MED ONE 06/14 2237 DC PO 06/14 2238 Acetaminophen 650 MG Q6P PRN 06/13 0215 AC 06/14 PO 223 Cefazolin Sodium 1,000 MG IQ8 06/13 0800 AC 06/15 IV 0930 Enoxaparin Sodium 40 MG DAILY 06/13 1000 AC 06/15 SC 0930 Senna/Docusate Sodium 2 TAB DAILY 06/13 1941 AC 06/13 PO 2104 Last 24 Hrs of Lab/Tex Results Last 24 Hrs of Labs/Mics: Laboratory Tests 06/15/17 0626: CBC w Diff NO MAN DIFF REQ, RBC 4.13 L, MCV 92.4, MCH 31.4 H, MCHC 34.0, RDW 13.6, MPV 8.1, Gran % 78.9 H, Lymphocytes % 10.3 L, Monocytes % 10.2 H, Eosinophils % 0.5, Basophils % 0.1, Absolute Granulocytes 8.4 H, Absolute Lymphocytes 1.1 L, Absolute Monocytes 1.1 H, Absolute Eosinophils 0.1, Absolute Basophils 0, ESR Westergren Pending Assessment/Plan Assessment: 62 year old man with multiple medical problems significant for cerebral palsy s/ p multiple surgical revisions of his lower extremity contractures and recurrent cellulitis seen for evaluation of acute onset chills with right lower extremity erythema concerning for cellulitis. Patients TMAX for last 24 hours was 100.1 last evening. His leukocytosis improved to 10K today. ID configuration consultant recommended podiatry evalation; x-rays were ordered that demonstrated soft tissue swelling. Blood cultures remain no growth to day. He has clinically improving right lower extremity cellulitis on intravenous Cefazolin. He is to be discharged to home with oral Keflex to complete a 10 day total course of antibiotics and to follow up with podiatry as an outpatient. Problem List -Right lower extremity cellulitis -Sepsis, resolved -Lactic Acidois, resolved -History of Cerebral Palsy s/p multiple lower extremity surgeries -History of left hip injury s/p surgical repair 1992 -Osteoarthritis Plan -General Medicine -Elevated RLE -Cefazolin 1 g IV Q8H -Consults with ID and podiatry -Follow up cultures & sensitivies, NGTD -Pain control with acetaminophen -Regular Diet -DVT PPx with lovenox -FULL CODE Problem List: 1. Sepsis 2. Cellulitis Pain Ratin Pain Location: Right leg Pain Goal: Remain pain free Pain Plan: See assessment Tomorrow's Labs & Rationales: None Consulting Request: Consulting Specialty: Infectious Disease Lotus Lazo MD 06/15/17 0954: Attending MD Review Statement Attending Statement Attending MD Statement: examined this patient, discuss w/resident/PA/CASE BRIEFER, agreed w/resident/PA/CASE BRIEFER, reviewed EMR data (avail), discussed with nursing, discussed with case mgmt, reviewed images, amended to note Attending Assessment/Plan: Patient seen and examined, overall doing better today. The right lower extremity erythema is improving. Patient this morning is afebrile and has a PVC count has also improved to normal. Vital Signs Date Time Temp Pulse Resp B/P B/P Pulse O2 O2 Flow FiO2 Mean Ox Delivery Rate 06/15 0646 98.6 81 20 128/98 97 Room Air 06/14 2205 100.1 88 20 122/70 94 Room Air 06/14 1413 98.9 20 20 132/78 93 Room Air on exam; aox3, nad cv; s1,s2, rrr resp; clear abd; soft, nt, bs+ ext; right lower extremity still has erythema but it is receding. Laboratory Tests 06/15 625 Hematology CBC w Diff NO MAN DIFF REQ WBC (4.8 - 10.8 /CUMM) 10.6 RBC (4.70 - 6.10 /CUMM) 4.13 L Hgb (14.0 - 18.0 G/DL) 13.0 L Hct (42 - 52 %) 38.2 L MCV (80.0 - 94.0 FL) 92.4 MCH (27.0 - 31.0 PG) 31.4 H MCHC (33.0 - 37.0 G/DL) 34.0 RDW (11.5 - 14.5 %) 13.6 Plt Count (130 - 400 /CUMM) 259 MPV (7.4 - 10.4 FL) 8.1 Gran % (42.2 - 75.2 %) 78.9 H Lymphocytes % (20.5 - 51.1 %) 10.3 L Monocytes % (1.7 - 9.3 %) 10.2 H Eosinophils % (0 - 5 %) 0.5 Basophils % (0.0 - 2.0 %) 0.1 Absolute Granulocytes (1.4 - 6.5 /CUMM) 8.4 H Absolute Lymphocytes (1.2 - 3.4 /CUMM) 1.1 L Absolute Monocytes (0.10 - 0.60 /CUMM) 1.1 H Absolute Eosinophils (0.0 - 0.7 /CUMM) 0.1 Absolute Basophils (0.0 - 0.2 /CUMM) 0 ESR Westergren (0 - 10 MM) Pending A/P; 62 y/o M with pmh sig for cerebral palsy, left hip reconstruction and multiple hip surgeries, admitted with sepsis (fever, leukocytosis, tachycardia) secondary to right lower extremity cellulitis. Appreciate infectious disease input. Patient has been kept on cefazolin. We'll consult podiatry for the second toe wound. Clinically improving and WBC count has improved. Patient is afebrile. Pending podiatry eval and ID follow-up, will decide about possible discharge either later today or tomorrow on oral antibiotics. Continue the rest of the management. DVT prophylaxis: Lovenox.
[2017-06-15 07:55] LABS: ABSOLUTE BASOPHIL COUNT 0 /CUMM (0.0-0.2); ABSOLUTE EOSINOPHIL COUNT 0.1 /CUMM (0.0-0.7); ABSOLUTE GRANULOCYTE CT 8.4 /CUMM (1.4-6.5); ABSOLUTE LYMPH COUNT 1.1 /CUMM (1.2-3.4); ABSOLUTE MONOCYTE COUNT 1.1 /CUMM (0.10-0.60); BASOPHIL % 0.1 % (0.0-2.0); EOSINOPHIL % 0.5 % (0-5); GRANULOCYTE % 78.9 % (42.2-75.2); HEMATOCRIT 38.2 % (42-52); MEAN CORPUSCULAR HGB 31.4 PG (27.0-31.0); MEAN CORPUSCULAR VOLUME 92.4 FL (80.0-94.0); MEAN PLATELET VOLUME 8.1 FL (7.4-10.4); PLATELET COUNT 259 /CUMM (130-400); RBC DISTRIBUTION WIDTH 13.6 % (11.5-14.5); RED BLOOD CELL CT 4.13 /CUMM (4.70-6.10); WHITE BLOOD CELL COUNT 10.6 /CUMM (4.8-10.8)
--- NOTE | 2017-06-15 12:29 | PN- Infect Dx ---
Subjective Subjective: MAXIMUM TEMPERATURE 100.1. He feels well with no complaints Objective Last 24 Hrs of Vital Signs/I&O Vital Signs Date Time Temp Pulse Resp B/P B/P Pulse O2 O2 Flow FiO2 Mean Ox Delivery Rate 06/15 0646 98.6 81 20 128/98 97 Room Air 06/14 2205 100.1 88 20 122/70 94 Room Air 06/14 1413 98.9 20 20 132/78 93 Room Air Intake & Output 06/15 1600 06/15 0800 06/15 0000 Intake Total 480 250 Output Total 550 250 Balance -70 0 Intake, IV 10 Intake, Oral 480 240 Number 0 0 Bowel Movements Output, Urine 550 250 Physical Exam Other Physical Findings: He appears comfortable in no acute distress Extremities erythema over the anterior tibial aspect of the right leg and in the right thigh persists, with mild edema and no tenderness to palpation Results Last 24 Hours of Lab Results: Laboratory Tests 06/15 625 Hematology CBC w Diff NO MAN DIFF REQ WBC (4.8 - 10.8 /CUMM) 10.6 RBC (4.70 - 6.10 /CUMM) 4.13 L Hgb (14.0 - 18.0 G/DL) 13.0 L Hct (42 - 52 %) 38.2 L MCV (80.0 - 94.0 FL) 92.4 MCH (27.0 - 31.0 PG) 31.4 H MCHC (33.0 - 37.0 G/DL) 34.0 RDW (11.5 - 14.5 %) 13.6 Plt Count (130 - 400 /CUMM) 259 MPV (7.4 - 10.4 FL) 8.1 Gran % (42.2 - 75.2 %) 78.9 H Lymphocytes % (20.5 - 51.1 %) 10.3 L Monocytes % (1.7 - 9.3 %) 10.2 H Eosinophils % (0 - 5 %) 0.5 Basophils % (0.0 - 2.0 %) 0.1 Absolute Granulocytes (1.4 - 6.5 /CUMM) 8.4 H Absolute Lymphocytes (1.2 - 3.4 /CUMM) 1.1 L Absolute Monocytes (0.10 - 0.60 /CUMM) 1.1 H Absolute Eosinophils (0.0 - 0.7 /CUMM) 0.1 Absolute Basophils (0.0 - 0.2 /CUMM) 0 ESR Westergren (0 - 10 MM) 84 H Last 24 Hours of Tex Results: Blood cultures June 12 negative Assessment/Plan ID Impression: Improved with temperatures and white blood cell count now normal on Cefazolin Day 3 of treatment for right leg cellulitis/lymphangitis. Suggestion: 1. Continue elevation of the right leg 2. Continue Cefazolin until discharge, at which point can change to Keflex 500 mg po every 6 hours to complete a total of 10 days of treatment (i.e. 7 more days)
--- NOTE | 2017-06-15 13:01 | Cons- Podiatry ---
General Information and HPI Consulting Request Date of Consult: 06/15/17 Requested By: Lotus Lazo MD Reason for Consult: lesion right 2nd toe, right lower extremity cellulitis Source of Information: patient Exam Limitations: no limitations History of Present Illness: This is a 62-year-old man with cerebral palsy who was admitted 3 days prior for sepsis secondary to a right lower extremity cellulitis. Podiatry is consulted for a periungual lesion of the distal second digit. The patient reports having an extensive surgical history in his hips and knees to correct deformities associated with his cerebral palsy. He also reports multiple bouts of cellulitis similar to this one dating back to 1994, some in this area, some in the same area on the contralateral side. He reports having digital deformities of the second toe bilaterally, and reports having refused any further surgical intervention or soft tissue releases for these after the previous extensive surgeries he had on his knees and hips. He denies there being a history of ulceration in his feet. Allergies/Medications Allergies: Coded Allergies: NSAIDS (Non-Steroidal Anti-Inflamma (Mild, "GI UPSET" 09/10/15) aspirin (Mild, "GI UPSET" 09/10/15) codeine (Mild, "GI UPSET" 09/10/15) morphine (Mild, "CRYING FIT FOR 24 HOURS" 09/10/15) Home Med List: Acetaminophen 500 MG TABLET 1 TAB PO PRN ARTHRITIS (Reported) Current Medications: Current Medications Sig/William Start time Last Medication Dose Route Stop Time Status Admin Acetaminophen 650 MG .STK-MED ONE 06/14 2237 DC PO 06/14 223 Acetaminophen 650 MG Q6P PRN 06/13 0215 AC 06/14 PO 223 Cefazolin Sodium 1,000 MG IQ8 06/13 0800 AC 06/15 IV 0930 Enoxaparin Sodium 40 MG DAILY 06/13 1000 AC 06/15 SC 0930 Senna/Docusate Sodium 2 TAB DAILY 06/13 1941 AC 06/13 PO 2103 Past History Medical History Neurological: CEREBRAL PALSY EENT: NONE Cardiovascular: NONE Respiratory: NONE Gastrointestinal: NONE Hepatic: NONE Renal: NONE Psychiatric: NONE Endocrine: NONE Blood Disorders: NONE Cancer(s): NONE PRODUCT SAFETY COORDINATOR/Reproductive: NONE Other Medical Hx: Recurrent cellulitis of both lower extremities Surgical History Pertinent Surgical History: MULTIPLE LEG SURGERIES L HIP SURGERY Family History Relations & Conditions If Any: MOTHER FH: stomach cancer Psychosocial History Where Do You Live? Home Who Do You Live With? spouse Services at Home: None Primary Language: Bahraini Smoking Status: Former Smoker ETOH Use: occasional use Illicit Drug Use: marijuana Functional Ability ADLs Independent: dressing, eating, toileting, bathing. Ambulation: cane, walker Review of Systems Review of Systems: A 14 point review of systems was performed, and was found to be negative apart from the patient's complaints described above in the history of present illness. Exam & Diagnostic Data Vital Signs and I&O Vital Signs Date Time Temp Pulse Resp B/P B/P Pulse O2 O2 Flow FiO2 Mean Ox Delivery Rate 06/15 0646 98.6 81 20 128/98 97 Room Air 06/14 2205 100.1 88 20 122/70 94 Room Air 06/14 1413 98.9 20 20 132/78 93 Room Air Intake & Output 06/15 1600 06/15 0800 06/15 0000 06/14 1600 06/14 0800 06/14 0000 Intake Total 480 250 750 240 440 Output Total 550 250 600 800 600 Balance -70 0 150 -560 -160 Intake, IV 10 30 200 Intake, Oral 480 240 720 240 240 Number 0 0 1 Bowel Movements Output, Urine 550 250 600 800 600 Physical Exam: Dorsalis pedis and posterior tibial pulses are 2 out of 4 bilaterally. There is a normal temperature gradient in the left lower extremity, there is a focus of calor in the midshaft of the tib-fib segment of the right lower extremity, but otherwise normal gradient in the ankle and foot. Capillary refill time is 3 seconds in all 10 toes. The patient has intact sensation on gross examination. On the anterior border of the right tibial crest, there is a 5 cm x 4 cm patch of shiny erythema but no fluctuance, no ecchymosis, no open lesion, no bullous change, there are markings on the leg from a skin marker that show substantial improvement and recession of the cellulitis from admission. 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 On the right foot there appears to be lysis of the second toenail with some dried blood which appears to be remote. There is no open lesion in the periungual area, no sausage digit deformity, and no clinical signs of acute infection. Last 24 Hours of Labs: Laboratory Tests 06/15 0626 Hematology CBC w Diff NO MAN DIFF REQ WBC (4.8 - 10.8 /CUMM) 10.6 RBC (4.70 - 6.10 /CUMM) 4.13 L Hgb (14.0 - 18.0 G/DL) 13.0 L Hct (42 - 52 %) 38.2 L MCV (80.0 - 94.0 FL) 92.4 MCH (27.0 - 31.0 PG) 31.4 H MCHC (33.0 - 37.0 G/DL) 34.0 RDW (11.5 - 14.5 %) 13.6 Plt Count (130 - 400 /CUMM) 259 MPV (7.4 - 10.4 FL) 8.1 Gran % (42.2 - 75.2 %) 78.9 H Lymphocytes % (20.5 - 51.1 %) 10.3 L Monocytes % (1.7 - 9.3 %) 10.2 H Eosinophils % (0 - 5 %) 0.5 Basophils % (0.0 - 2.0 %) 0.1 Absolute Granulocytes (1.4 - 6.5 /CUMM) 8.4 H Absolute Lymphocytes (1.2 - 3.4 /CUMM) 1.1 L Absolute Monocytes (0.10 - 0.60 /CUMM) 1.1 H Absolute Eosinophils (0.0 - 0.7 /CUMM) 0.1 Absolute Basophils (0.0 - 0.2 /CUMM) 0 ESR Westergren (0 - 10 MM) 84 H Assessment/Plan Assessment/Plan 62-year-old male with cerebral palsy, bilateral digital and ankle deformities of the foot and ankle, and a resolving cellulitis of the right lower extremity The patient was seen and evaluated at bedside. The patient's periungual lesion on the right second toe exhibits no clinical signs of acute infection, and does not appear to be associated with the resolving right lower extremity cellulitis. We will as a screening measure order x-rays of the right foot which will be done portable at bedside to rule out any latent quiescent chronic osteomyelitis that's not evident clinically given that he has had multiple episodes of this kind of infection in the same leg, but I have a very low suspicion that there is any involvement of the foot at this time. I also educated the patient on routine services as an outpatient available to people with neurological condition such as his, and I also educated the patient on elective deformity correction of the digits through soft tissue releases and/ or revisional heel cord lengthenings down the line, which he declined to consider. From a podiatric standpoint the patient is clear for discharge, and the patient reported to me during the examination that he is scheduled for discharge today. I have read and appreciated the infectious disease consultation from Dr. Freed. Final ABx recommendations per ID. If he does not have follow-up with medical doctor or infectious disease specialist as an outpatient, he may be referred to me and my [facility] office within 7-10 days for follow-up. Problem List: 1. Cellulitis Copies To: Clifton MONTE,Ruben Freed MD,Papito Zaidi. Consult Acknowledgment - Thank you for your consult request.
[2017-06-15] MEDS ORDERED: KEFLEX500 M1 PO ×2 (13:17→15:58)
--- NOTE | 2017-06-15 13:19 | Patient Discharge Instructions ---
Discharge Instructions General Discharge Information Special Instructions: Take Keflex as directed. Keep your leg elevated when at rest. Call 911 or return to the ED should your symptoms worsen. Continue all your previous medications. Acute Coronary Syndrome Inclusion Criteria At DC or during hospital stay patient has or had the following: ACS DIAGNOSIS No Discharge Core Measures Meds if any: Prescribed or Continued at Discharge Meds if any: NOT Prescribed or Continued at Discharge Congestive Heart Failure Inclusion Criteria At DC or during hospital stay patient has or had the following: CHF DIAGNOSIS No Discharge Core Measures Meds if any: Prescribed or Continued at Discharge Meds if any: NOT Prescribed or Continued at Discharge Cerebrovascular accident Inclusion Criteria At DC or during hospital stay patient has or had the following: CVA/TIA Diagnosis No Discharge Core Measures Meds if any: Prescribed or Continued at Discharge Meds if any: NOT Prescribed or Continued at Discharge Venous thromboembolism Inclusion Criteria VTE Diagnosis No VTE Type NONE VTE Confirmed by (Test) NONE Discharge Core Measures - Per Current guidelines, there needs to be overlap - treatment for the first 5 days of Warfarin therapy. - If discharged on Warfarin prior to 5 days of - overlap therapy, the patient will need to be - assessed for post discharge needs including - *Post discharge parental anticoagulation - *Warfarin and/or parental anticoagulation education - *Follow up date to check INR post discharge At least 5 days overlap therapy as Inpatient No Meds if any: Prescribed or Continued at Discharge Note: Overlap Therapy is Warfarin and Anticoagulant Meds if any: NOT Prescribed or Continued at Discharge
[2017-06-15] MEDS ORDERED: ASPIRIN81 M4 PO (14:29)
--- NOTE | 2017-06-15 15:40 | RADIOLOGY REPORT ---
EXAMINATION: XR TIBIA AND FIBULA, RIGHT CLINICAL INFORMATION: Probable cellulitis COMPARISON: Ultrasound of the right lower extremity 06/13/2017. TECHNIQUE: AP and lateral views of the right tibia and fibula were obtained. FINDINGS: There is generalized soft tissue swelling compatible edema and/or cellulitis. The bone is normal. IMPRESSION: Prominent soft tissue swelling compatible edema, cellulitis or a combination of these.
--- NOTE | 2017-06-15 15:41 | RADIOLOGY REPORT ---
EXAMINATION: XR FOOT, RIGHT CLINICAL INFORMATION: Ulceration of the right second toe. COMPARISON: None TECHNIQUE: 3 views of the right foot. FINDINGS: No bone destruction. No radiographic evidence for osteomyelitis. Bone and joints are normal. No soft tissue abnormality. IMPRESSION: No evidence for osteomyelitis. No acute osseous change.
== END 2017-06-15 16:45 | DRG 872 ==
LOC: ERH 16:48 → ERHI 21:49 → ENTRNSPT 06-13 12:32 → EDTRNSPTSTS 06-13 12:41 → EDTRNSPT 06-13 12:41 → 2NB 06-13 12:57 → CMPTRNSPT 06-13 13:17 → ENTRNSPT 06-15 16:25 → 2NB 06-15 16:45 → EDTRNSPTSTS 06-15 16:51 → EDTRNSPT 06-15 16:51 → CMPTRNSPT 06-15 17:02
PROVIDERS: Internal Medicine Interventional Cardiology; Physician Assistant; Student in an Organized Health Care Education/Training Program
DX: A41.9 Sepsis, unspecified organism (principal); E87.2 Acidosis; L03.115 Cellulitis of right lower limb; G80.9 Cerebral palsy, unspecified; Z87.891 Personal history of nicotine dependence; E86.0 Dehydration; R26.1 Paralytic gait; M24.575 Contracture, left foot; M24.574 Contracture, right foot; M24.572 Contracture, left ankle; M24.571 Contracture, right ankle
CPT/HCPCS: 2NBSP; ERO; 36415; 36592; 73590-RT; 73630-RT; 82436; 87040; 87804; 87804-59; 96374; 99291; J0690; J1650